=== PATIENT | female | born 1945 | race Asian ===

== ENCOUNTER 2019-10-03 00:02 | Inpatient (IN) | payer SELFPAY ==
[~2019-10-03] VITALS: Ht 160 cm; Wt 57.2 kg
[2019-10-03] VITALS (7 sets, daily range): BP systolic 104–158
--- NOTE | 2019-10-03 00:08 | NUR ---
Placed in room 8 . Placed on hide handler, blood pressure machine and pulse oximeter. To gown for exam. Side rails up. Report given to Shakira COFFEY.
--- NOTE | 2019-10-03 00:09 | NUR ---
pt BIB ALS from home c/o of shortness of breath that started today. pt O2 was 91% when FIRE arrived, was put on a nonrebreather on 15L. pt arrived and o2 saturation 100% on 15L o2. pt appears anxious, diaphoretic, cool to the touch, and is working to breathe. pt speaks egyptian.
--- NOTE | 2019-10-03 00:10 | NUR ---
# 20 gauge angiocath placed to Lt hand. Use of asceptic technique. Opsite placed over site. Blood return noted. Blood for lab drawn from site. Flushed with 10 cc of normal saline. No evidence of infiltration noted. Patient tolerated well.
--- NOTE | 2019-10-03 00:15 | NUR ---
ER at bedside examining patient.
[2019-10-03] MEDS ORDERED: NACL 0.9% 1,000 ML IV ONE ×2 (00:20→02:00)
--- NOTE | 2019-10-03 00:26 | NUR ---
Covid swab obtained and sent to lab
[2019-10-03] MEDS ORDERED: LevALBUTEROL HCL 1.25 MG/0.5 ML *CONC.* VIAL.NEB (XOPENEX CONC.) INH ONE (00:30)
--- NOTE | 2019-10-03 00:35 | NUR ---
respiratory therapy at bedside for ABG and breathing tx.
--- NOTE | 2019-10-03 00:36 | NUR ---
pt ripped out her IV on left hand. bleeding controlled.
--- NOTE | 2019-10-03 00:39 | NUR ---
pt desats to 80% when taken off supplemental oxygen. aware.
--- NOTE | 2019-10-03 00:40 | NUR ---
# 22 gauge angiocath placed to right hand. Use of asceptic technique. Opsite placed over site. Blood return noted. Flushed with 10 cc of normal saline. No evidence of infiltration noted. Patient tolerated well.
[2019-10-03 00:43] LABS: BASOPHILS % (AUTO) 0.3 % (0.0-2.0); EOSINOPHILS # (AUTO) 0.1 K/uL (0.0-0.4); EOSINOPHILS % (AUTO) 0.7 % (0.0-4.0); HEMATOCRIT 43.3 % (36-48); HEMOGLOBIN 14.5 g/dL (12.0-16.0); LYMPHOCYTES # (AUTO) 3.9 K/uL (1.0-5.5); LYMPHOCYTES % (AUTO) 37.3 % (20.5-51.5); MEAN CORPUSCULAR HEMOGLOBIN 31 pg (27-31); MEAN CORPUSCULAR HGB CONC 34 % (32-36); MEAN CORPUSCULAR VOLUME 92 fL (79.0-98.0); MONOCYTES # (AUTO) 0.6 K/uL (0.0-1.0); MONOCYTES % (AUTO) 5.5 % (1.7-9.3); NEUTROPHILS # (AUTO) 5.8 K/uL (1.8-7.7); NEUTROPHILS % (AUTO) 56.2 % (40.0-70.0); PLATELET COUNT (AUTO) 268 K/uL (130-430); RED BLOOD CELL COUNT(AUTO) 4.69 MIL/uL (4.2-6.2); RED CELL DISTRIBUTION WIDTH 12.9 % (9.0-15.0); WHITE BLOOD COUNT (AUTO) 10.4 K/uL (4.8-10.8)
[2019-10-03 00:55] LABS: ANION GAP 13 (5-15); CALCIUM 8.7 mg/dL (8.4-11.0); CHLORIDE 93 mmol/L (98-107); CREATININE 1.39 mg/dL (0.55-1.30); GLUCOSE 298 mg/dL (70-99); POTASSIUM 3.4 mmol/L (3.5-5.1); SODIUM SERUM 126 mmol/L (136-145); UREA NITROGEN, BLOOD 13 mg/dL (8-21)
[2019-10-03 01:01] LABS: ALANINE AMINOTRANSFERASE 44 U/L (12-78); ALBUMIN 3.5 g/dL (3.4-4.8); ASPARTATE AMINOTRANSFERASE 27 U/L (10-37); TOTAL BILIRUBIN 0.9 mg/dL (0.0-1.0)
[2019-10-03 01:02] LABS: PROTHROMBIN TIME 10.4 SECS (9.5-12.5)
--- NOTE | 2019-10-03 01:46 | NUR ---
Medication reconciliation completed with information provided by son. Any prior medication reconciliation on file was reviewed and corrected.
--- NOTE | 2019-10-03 01:49 | NUR ---
Patient's code status is full code paperwork completed and placed in chart.
--- NOTE | 2019-10-03 01:50 | NUR ---
SPOKE WITH SON ABOUT STATUS OF PT, WITH PT CONSENT.
[2019-10-03] MEDS ORDERED: NS 500 ML IV ONE (02:00)
--- NOTE | 2019-10-03 02:15 | NUR ---
respiratory at bedside to titrate pt oxygen to 12L. pt O2 sat at 96%.
--- NOTE | 2019-10-03 02:22 | NUR ---
1500mls of Normal Saline given as bolus per MD order. 1L infusing at 100mls/hr per md order. sepsis protocol initiated per MD order.
[2019-10-03 02:27] LABS: C-REACTIVE PROTEIN QUANT 0.3 mg/dL (0-0.5)
--- NOTE | 2019-10-03 02:28 | NUR ---
respiratory at bedside.
[2019-10-03] MEDS ORDERED: AZITHROMYCIN 500 MG in NS 250 ML IV ONE (02:30)
[2019-10-03] MEDS ORDERED: cefTRIAXone 1 GM IVPB PREMIX 50 ML IV ONE (02:30)
--- NOTE | 2019-10-03 02:33 | NUR ---
RECEIVED ADMIT ORDERS FROM DR. CANO.
[2019-10-03 02:35] LABS: FIBRINOGEN 333 mg/dL (200-400)
--- NOTE | 2019-10-03 02:35 | NUR ---
Blood cultures drawn, prior to administration of antibiotic.
--- NOTE | 2019-10-03 02:36 | NUR ---
spoke with Lou to request TELE bed.
[2019-10-03] MEDS ORDERED: AZITHROMYCIN 500 MG/VIAL (ZITHROMAX) IV ONE (02:58)
[2019-10-03] MEDS ORDERED: IPRATROPIUM/ALBUTEROL SULFATE 3 ML AMPUL.NEB (DUONEB) INH PRN ×2 (03:00→12:45)
--- NOTE | 2019-10-03 03:03 | NUR ---
PT ABLE TO AMBULATE TO BEDSIDE COMMODE WITH STEADY GAIT.
--- NOTE | 2019-10-03 03:17 | NUR ---
Patient will be admitted to care of DR. CANO. Admitted to TELE unit. Will go to room 120. Belongings list completed. Complete and up to date summary report printed. SBAR report to be given at bedside with opportunity for questions.
--- NOTE | 2019-10-03 03:31 | NUR ---
Transfer to TELE via ACLS protocol. Licensed nurse present. IV present no signs or symptoms of infiltration.
--- NOTE | 2019-10-03 04:04 | NUR ---
ADMISSION NOTE Received patient from ER via marta, received report from ALEXX zee. Patient admitted with diagnosis of PNA, PUI. Patient oriented to hospital routine, call light, toileting and safety-patient verbalized understanding.
[2019-10-03 04:22] LABS: BILIRUBIN,URINE NEGATIVE (NEGATIVE); BLOOD, URINE NEGATIVE (NEGATIVE); CLARITY/URINE CLEAR (CLEAR); COLOR,URINE YELLOW (YELLOW); GLUCOSE,URINE 2+ (NEGATIVE); KETONES,URINE NEGATIVE (NEGATIVE); LEUKOCYTE ESTERASE ,URINE NEGATIVE (NEGATIVE); NITRITE, URINE NEGATIVE (NEGATIVE); PROTEIN URINE 1+ (NEGATIVE); UROBILINOGEN,URINE 0.2 (0.2-1.0)
[2019-10-03 04:38] LABS: BACTERIA,URINE FEW /HPF (None Seen); RBC,URINE 0-3 /HPF (0-3); WBC,URINE 0-3 /HPF (0-3)
--- NOTE | 2019-10-03 06:30 | NUR ---
CLOSING NOTE PATIENT AWAKE IN BED, ASKING TO GO HOME. EDUCATED PATIENT ON REASON SHES IN THE HOSPITAL. RESPIRATIONS EVEN AND UNLABORED ON OXYGEN 10LPM VIA VENTURI MASK. TOLERATING IVF ORDERED, IV INTACT AND PATENT WITH NO SIGNS OF INFILTRATION NOTED. ISOLATION PRECAUTIONS REMAIN IN PLACE PER COVID PUI. BED LOCKED IN LOWEST POSITION, WITH CALL LIGHT IN REACH. WILL CONTINUE TO MONITOR UNTIL ENDORSED TO AM NURSE. PATIENT STABLE. ALL PATIENT CARE NEEDS MET THROUGHOUT SHIFT.
--- NOTE | 2019-10-03 08:00 | NUR ---
initial notes rec patient awake alert and speaks swazi only. with lydia mask at 9 liters . no sob noted and sat is 100%. denies pain.call light withn reached. seen by dr camilo. awaiting for dr decker to call for diet order.
--- NOTE | 2019-10-03 08:12 | NUR ---
CONSULT PULMONOLOGY PNEUMONIA/PUI DR VERITO PATTON IS STAFF DEVELOPMENT EDUCATOR AND WAS INFORMED OF CONSULT
[2019-10-03] MEDS: IPRATROPIUM/ALBUTEROL SULFATE 3 ML AMPUL.NEB (DUONEB) INH SCH ×5 (08:15→23:15)
[2019-10-03] MEDS: FUROSEMIDE 20 MG/2 ML VIAL IVP SCH ×2 (08:15→12:00)
[2019-10-03] MEDS ORDERED: FUROSEMIDE 20 MG/2 ML VIAL IVP ONE (08:30)
--- NOTE | 2019-10-03 10:00 | NUR ---
rounds son came and brought cell phone for patient. son constantly calls and wants an update for the patient. resting comfortably.
--- NOTE | 2019-10-03 11:45 | NUR ---
CONSULT CARDIOLOGY CHF DR BOLANOS [phone] S/W [facility] OFFICE
[2019-10-03] MEDS ORDERED: FUROSEMIDE 40 MG/4 ML VIAL IVP ONE (12:45)
[2019-10-03] MEDS ORDERED: CARVEDILOL 6.25 MG TABLET (COREG) PO ONE (12:45)
[2019-10-03] MEDS: ENOXAPARIN SODIUM 30 MG/0.3 ML SYRINGE SUBCUT SCH (13:00)
--- NOTE | 2019-10-03 14:00 | NUR ---
rounds seen by dr parish and with order.
--- NOTE | 2019-10-03 18:30 | NUR ---
closing notes denies pain, resting comfortably needs met. no sob noted. call light within reached. bed in low positon and side rails up and locked.
--- NOTE | 2019-10-03 19:15 | NUR ---
Pt was received lying in bed fully awake, alert and oriented x4. Pt is on oxygen at 2L/min via NC and oxygen saturation is 98%. Pt is Macanese speaking, but able to understand and speak little Maori. Pt is able to make her needs known in Maori. Saline lock in right hand is without any signs of infiltration. Fall, Droplet Isolation and Safety precautions are in place. Call light is with pt and bed alarm is on.
[2019-10-03] MEDS: CARVEDILOL 6.25 MG TABLET (COREG) PO SCH (20:15)
--- NOTE | 2019-10-03 20:15 | NUR ---
RN returned telephone call to pt's son Deepak. Updates were given to him per his request and all his questions were answered. Addendum: 10/03/19 at 2129 by Kirsten Cordero RN Please disregard for wrong entry time.
--- NOTE | 2019-10-03 20:15 | NUR ---
Scheduled HS medication given and no difficulty swallowing noted. Pt remains on oxygen at 2L/min per NC. Call light is with pt and bed alarm is on.
--- NOTE | 2019-10-03 21:15 | NUR ---
RN returned telephone call to pt's son Deepak. Updates were given to him per his request and all his questions were answered.
--- NOTE | 2019-10-03 23:00 | NUR ---
Pt is resting quietly in bed. No c/o pain or discomfort. Fall, Droplet Isolation and Safety precautions are in place.
[2019-10-04] VITALS: BP_SYST 112
--- NOTE | 2019-10-04 01:00 | NUR ---
Pt is sleeping without any respiratory distress noted. Fall, Droplet Isolation and safety precautions are in place.
--- NOTE | 2019-10-04 02:55 | NUR ---
Pt c/o not receiving any air via NC. Pt requested oxygen via mask. O2 sat checked on oxygen at 2L/min via NC and it was 100%. Pt still not convinced that she is getting oxygen. Pt insisted on putting her back on oxygen via face mask. Pt appears anxious and hyperventilating. RT was notified.
[2019-10-04] MEDS: IPRATROPIUM/ALBUTEROL SULFATE 3 ML AMPUL.NEB (DUONEB) INH SCH ×6 (03:00→23:28)
--- NOTE | 2019-10-04 03:00 | NUR ---
RT at pt's bedside and pt's oxygen saturation 99% on oxygen at 2L/min per NC. Breathing treatment given to pt by RT. Pt still asking for oxygen via mask. Pt was informed she does not need oxygen via mask.
--- NOTE | 2019-10-04 05:00 | NUR ---
Pt is sleeping in bed and no respiratory distress noted.
--- NOTE | 2019-10-04 06:20 | NUR ---
Pt is very anxious and keeps requesting oxygen via mask. Pt is currently on oxygen via NC at 2L/min and oxygen saturation is 99%. Pt was informed her oxygen saturation is normal, but pt keeps on insisting on putting her back on mask. RN left a message for pt's son to call her back.
--- NOTE | 2019-10-04 06:39 | NUR ---
Pt remains very anxious and continues to scream for oxygen via face mask. New orders received from Dr. Hester for Stat ABG and IV Ativan. RT was notified for Stat ABG.
[2019-10-04 06:40] LABS: BASOPHILS % (AUTO) 0.2 % (0.0-2.0); HEMATOCRIT 39.6 % (36-48); HEMOGLOBIN 13.4 g/dL (12.0-16.0); LYMPHOCYTES # (AUTO) 1.6 K/uL (1.0-5.5); LYMPHOCYTES % (AUTO) 17.9 % (20.5-51.5); MEAN CORPUSCULAR HEMOGLOBIN 31 pg (27-31); MEAN CORPUSCULAR HGB CONC 34 % (32-36); MEAN CORPUSCULAR VOLUME 92 fL (79.0-98.0); MONOCYTES # (AUTO) 0.5 K/uL (0.0-1.0); NEUTROPHILS % (AUTO) 76.9 % (40.0-70.0); PLATELET COUNT (AUTO) 248 K/uL (130-430); RED BLOOD CELL COUNT(AUTO) 4.31 MIL/uL (4.2-6.2); WHITE BLOOD COUNT (AUTO) 9.1 K/uL (4.8-10.8)
[2019-10-04] MEDS ORDERED: LORazepam 2 MG/ML VIAL IVP ONE (06:45)
--- NOTE | 2019-10-04 06:45 | NUR ---
HIGH ALERT NOTE: RN called Dr. Hester back at [phone], identified within the medical roster to verify physician authenticity for Ativan order.
--- NOTE | 2019-10-04 06:53 | NUR ---
RT NOTES Placed pt on 28% 6L venturi mask for comfort, due to despite good saturation on 2L NC pt complains of "not enough" flow. ALEXX Curtis made aware.
--- NOTE | 2019-10-04 07:10 | NUR ---
Results of ABGs called to Dr. Guerrero and no new orders given.
[2019-10-04 07:12] LABS: ALANINE AMINOTRANSFERASE 49 U/L (12-78); ALBUMIN 3.4 g/dL (3.4-4.8); ANION GAP 12 (5-15); ASPARTATE AMINOTRANSFERASE 37 U/L (10-37); CALCIUM 8.2 mg/dL (8.4-11.0); CHLORIDE 91 mmol/L (98-107); CREATININE 1.16 mg/dL (0.55-1.30); GLUCOSE 139 mg/dL (70-99); POTASSIUM 3.5 mmol/L (3.5-5.1); SODIUM SERUM 125 mmol/L (136-145); TOTAL BILIRUBIN 0.9 mg/dL (0.0-1.0); UREA NITROGEN, BLOOD 14 mg/dL (8-21)
--- NOTE | 2019-10-04 07:15 | NUR ---
Pt was seen by Dr. Gore.
--- NOTE | 2019-10-04 07:20 | NUR ---
Report given to day shift nurse.
--- NOTE | 2019-10-04 07:36 | NUR ---
Ativan 0.5mg given IV as ordered by .
[2019-10-04 07:49] LABS: CHOLESTEROL 223 mg/dL (<200); HDL CHOLESTEROL 65 mg/dL (>55); LDL CHOLESTEROL 138 mg/dL (<100); TRIGLYCERIDES 107 mg/dL (30-150)
--- NOTE | 2019-10-04 08:00 | NUR ---
ASSUMPTION OF CARE: RECEIVED PT A/ANXIOUS/CONFUSED, DX:INADEQUATE VENTILATION, R/T PNU, PUI, AFEBRILE, VSS, PT HAS AUDIBLE WHEEZING IN BILATERALLY LUNGS, CURRENTLY ON 6L VIA NASAL CANNULA WITH BREATHING TX Q4 AND Q6 PRN, PT REORIENTED TO UNIT, CALL PLACED WITHIN REACH, WILL CONT' TO MONITOR AND ASSESS.
[2019-10-04] MEDS ORDERED: METOLAZONE 2.5 MG TABLET PO ONE (08:15)
[2019-10-04] MEDS ORDERED: POTASSIUM CHLORIDE 20 MEQ TAB.PRT.SR PO ONE (08:15)
[2019-10-04 08:58] VITALS: BP_SYST 143
--- NOTE | 2019-10-04 09:00 | NUR ---
SPICE MIXER: MORNING MEDS GIVEN, PER ORDERED BY Saurabh TOLERATED WELL, WILL CONT' WITH PLAN OF CARE.
[2019-10-04] MEDS ORDERED: MORPHINE 2 MG/ML INJ. SYRINGE ONE (09:27)
[2019-10-04] MEDS: cefTRIAXone 1 GM IVPB PREMIX 50 ML IV SCH (09:33)
[2019-10-04] MEDS: SPIRONOLACTONE 25 MG TABLET (ALDACTONE) PO SCH (09:33)
[2019-10-04] MEDS: AZITHROMYCIN 500 MG in NS 250 ML IV SCH (09:33)
[2019-10-04] MEDS: CARVEDILOL 6.25 MG TABLET (COREG) PO SCH ×2 (09:34→21:00)
[2019-10-04] MEDS: FUROSEMIDE 40 MG/4 ML VIAL IVP SCH ×3 (09:35→17:00)
[2019-10-04] MEDS: ENOXAPARIN SODIUM 30 MG/0.3 ML SYRINGE SUBCUT SCH (09:36)
[2019-10-04] MEDS ORDERED: MORPHINE 2 MG/ML INJ. SYRINGE IVP ONE (09:45)
[2019-10-04] MEDS ORDERED: NALOXONE HCL 0.4 MG/ML AMP (NARCAN) IVP PRN (09:45)
--- NOTE | 2019-10-04 12:00 | NUR ---
NURSES NOTES: PT REMAINS STABLE WITH 6L O2 VIA VENT MASK, IS RESTING WHILE IN AND OUT OF SLEEP, CALL LIGHT PLACED WITHIN REACH, WILL CONT' TO MONITOR AND ASSESS.
[2019-10-04 12:19] VITALS: BP_SYST 130
--- NOTE | 2019-10-04 14:00 | NUR ---
NURSES NOTES: PT A/A/OX3, CONDITION IS STABLE, NO DISTRESS NOTED AT THIS TIME, NO C/O PAIN OR DISCOMFORT, WILL CONT' TO MONITOR AND ASSESS.
[2019-10-04 16:39] VITALS: BP_SYST 122
--- NOTE | 2019-10-04 18:30 | NUR ---
TRANSFER: PT TRANSFERRED TO [facility] ROOM 113-B, DUE TO COVID (-) X2, ISOLATION DISCONTINUED, WILL RESUME SAME ORDERS, WILL CONT' POC.
--- NOTE | 2019-10-04 19:30 | NUR ---
Initial notes: Received report from valery RN. Patient is in bed, resting. No acute distress. Even, nonlabored breathing on Venturi mask 6L. IV site is patent and intact, saline locked. Bed is locked at lowest position. Side rails up x2. Call light is with patient. Safety and fall precautions in place. Will continue plan of care.
[2019-10-04 20:00] VITALS: BP_SYST 138
--- NOTE | 2019-10-04 21:13 | NUR ---
Spoke to family: Spoke to sonDeepak over facetime with patient at bedside. Updated him on patient status and patient plan of care.
[2019-10-05] VITALS: BP_SYST 108
--- NOTE | 2019-10-05 00:05 | NUR ---
Rounds: Patient is in bed, sleeping. No acute distress. Breathing is even, nonlabored on Venturi mask 6L. Call light is with patient. Safety and fall precautions in place. Will continue to monitor.
--- NOTE | 2019-10-05 02:30 | NUR ---
Rounds: Patient is in bed, sleeping. No acute distress. Respirations are even, nonlabored on Venturi mask 6L. Call light is with patient. Safety and fall precautions in place. Will continue monitoring.
[2019-10-05] MEDS: IPRATROPIUM/ALBUTEROL SULFATE 3 ML AMPUL.NEB (DUONEB) INH SCH ×6 (03:38→22:50)
--- NOTE | 2019-10-05 05:15 | NUR ---
Rounds: Patient is in bed, eating. No s/s acute distress. Even, nonlabored respirations on Venturi mask 6L. Call light is with patient. Safety and fall precautions in place. Will continue to monitor.
[2019-10-05] MEDS: FUROSEMIDE 40 MG/4 ML VIAL IVP SCH (06:12)
[2019-10-05 06:52] LABS: BASOPHILS % (AUTO) 0.2 % (0.0-2.0); EOSINOPHILS # (AUTO) 0.1 K/uL (0.0-0.4); EOSINOPHILS % (AUTO) 0.6 % (0.0-4.0); HEMATOCRIT 36.3 % (36-48); HEMOGLOBIN 12.6 g/dL (12.0-16.0); LYMPHOCYTES # (AUTO) 1.3 K/uL (1.0-5.5); LYMPHOCYTES % (AUTO) 14.6 % (20.5-51.5); MEAN CORPUSCULAR HEMOGLOBIN 31 pg (27-31); MEAN CORPUSCULAR HGB CONC 35 % (32-36); MEAN CORPUSCULAR VOLUME 90 fL (79.0-98.0); MONOCYTES # (AUTO) 0.9 K/uL (0.0-1.0); MONOCYTES % (AUTO) 9.7 % (1.7-9.3); NEUTROPHILS # (AUTO) 6.8 K/uL (1.8-7.7); NEUTROPHILS % (AUTO) 74.9 % (40.0-70.0); PLATELET COUNT (AUTO) 243 K/uL (130-430); RED BLOOD CELL COUNT(AUTO) 4.04 MIL/uL (4.2-6.2); RED CELL DISTRIBUTION WIDTH 13.1 % (9.0-15.0); WHITE BLOOD COUNT (AUTO) 9.1 K/uL (4.8-10.8)
--- NOTE | 2019-10-05 06:58 | NUR ---
Closing note: Patient is in bed, resting. No acute distress. Even, nonlabored breathing on 6L Venturi Mask. IV site is saline locked, patent and intact. All needs met. Bed is locked at lowest position. Side rails up x2. Call light is with patient. Safety and fall precautions in place. Will endorse care to dayshift RN.
[2019-10-05 07:12] LABS: ALANINE AMINOTRANSFERASE 54 U/L (12-78); ANION GAP 10 (5-15); ASPARTATE AMINOTRANSFERASE 45 U/L (10-37); CALCIUM 8.2 mg/dL (8.4-11.0); CHLORIDE 94 mmol/L (98-107); GLUCOSE 118 mg/dL (70-99); POTASSIUM 3.6 mmol/L (3.5-5.1); SODIUM SERUM 126 mmol/L (136-145); TOTAL BILIRUBIN 0.7 mg/dL (0.0-1.0); UREA NITROGEN, BLOOD 21 mg/dL (8-21)
[2019-10-05 08:00] VITALS: BP_SYST 106
--- NOTE | 2019-10-05 08:00 | NUR ---
Opening Notes Patient received in bed able to answer questions and follow commands. Patient in no signs of distress at this time. Patient on a venturi mask at 6L, with saturation at 97%. Patient has a peripheral IV. Patient does not complain of pain. Safety precautions enforced.
[2019-10-05] MEDS: CARVEDILOL 6.25 MG TABLET (COREG) PO SCH ×2 (08:57→21:25)
[2019-10-05] MEDS: SPIRONOLACTONE 25 MG TABLET (ALDACTONE) PO SCH (08:57)
[2019-10-05] MEDS: ENOXAPARIN SODIUM 30 MG/0.3 ML SYRINGE SUBCUT SCH (08:59)
[2019-10-05] MEDS: AZITHROMYCIN 500 MG in NS 250 ML IV SCH (09:04)
[2019-10-05] MEDS: cefTRIAXone 1 GM IVPB PREMIX 50 ML IV SCH (09:04)
[2019-10-05] MEDS ORDERED: LOSARTAN POTASSIUM 50 MG TABLET (COZAAR) PO ONE (09:15)
--- NOTE | 2019-10-05 09:17 | NUR ---
Nutrition Update Chrsi Scale 18 noted. Pt admitted for PNA, PUI Diet: cardiac BMI: 22.1 kg/m2 RD to follow per nutrition care standards.
--- NOTE | 2019-10-05 10:00 | NUR ---
Oxygen Patient placed on 4L oxygen via nasal cannula per Dr. Gore. Patient tolerating well.
[2019-10-05] MEDS ORDERED: NS 250 ML IV ONE (11:15)
--- NOTE | 2019-10-05 12:00 | NUR ---
RN Rounds Patient resting in bed with no signs of distress at this time.
[2019-10-05 12:54] VITALS: BP_SYST 107
--- NOTE | 2019-10-05 16:00 | NUR ---
RN Rounds Patient resting at this time, no signs of distress noted. Patient has no complaints of pain.
[2019-10-05 17:00] VITALS: BP_SYST 110
--- NOTE | 2019-10-05 19:30 | NUR ---
Initial notes: Received report from dayshift RN. Patient is in bed, resting. No acute distress. Even, nonlabored breathing on 2L nasal cannula. IV site is patent and intact, saline locked. Bed is locked at lowest position. Side rails up x2. Call light is with patient. Safety and fall precautions in place. Will continue plan of care.
--- NOTE | 2019-10-05 19:41 | NUR ---
Closing Notes Patient endorsed to manager night RN using SBAR. Patient in no signs of distress.
[2019-10-05 20:00] VITALS: BP_SYST 112
--- NOTE | 2019-10-05 21:20 | NUR ---
Spoke to Dr. Gore: Spoke to Dr. Gore over the phone regarding patients BP 112/71 and HR 91. MD stated to continue scheduled medications Coreg 12.5mg PO and Lasix 40mg PO. Will continue to monitor and reassess patient.
[2019-10-05] MEDS: FUROSEMIDE 40 MG TABLET PO SCH (21:25)
--- NOTE | 2019-10-05 21:55 | NUR ---
Spoke to family member: Spoke to son, Deepak, twice. Son notified me of patient's concern of a cough. Educated son about medications given. Son translated information to patient. Patient verbalized understanding.
--- NOTE | 2019-10-06 00:15 | NUR ---
Rounds: Patient is in bed, sleeping. No acute distress. Breathing is even, nonlabored on 2L nasal cannula. Call light is with patient. Safety and fall precautions in place. Will continue to monitor.
[2019-10-06 01:37] VITALS: BP_SYST 105
--- NOTE | 2019-10-06 02:30 | NUR ---
Rounds: Patient is in bed, sleeping. No signs of acute distress. Respirations are even, nonlabored on 2L nasal cannula. Call light is with patient. Safety and fall precautions in place. Will continue to monitor.
[2019-10-06] MEDS: IPRATROPIUM/ALBUTEROL SULFATE 3 ML AMPUL.NEB (DUONEB) INH SCH ×6 (03:22→23:40)
--- NOTE | 2019-10-06 05:00 | NUR ---
Rounds: Patient is sleeping in bed. No s/s of acute distress. Breathing is even, nonlabored on 2L nasal cannula. Call light is with patient. Safety and fall precautions in place. Will continue to monitor.
--- NOTE | 2019-10-06 05:50 | NUR ---
NOTE PATIENT IS RESTING IN BED, STABLE, NO SIGNS OF RESPIRATORY DISTRESS. CALL LIGHT PLACED WITHIN REACH. BED IS LOCKED, ALARMED, AND AT THE LOWEST LEVEL. Addendum: 10/07/19 at 0719 by Diane Bingham RN NOTE INTENDED FOR DIFFERENT TIME
--- NOTE | 2019-10-06 06:21 | NUR ---
Closing note: Patient is in bed, sleeping. No acute distress. Even, nonlabored breathing on 2L nasal cannula. V site is saline locked, patent and intact. All needs met. Bed is locked at lowest position. Side rails up x2. Call light is with patient. Safety and fall precautions in place. Will endorse care to dayshift RN.
[2019-10-06 07:37] LABS: ANION GAP 8 (5-15); CALCIUM 8.3 mg/dL (8.4-11.0); CHLORIDE 100 mmol/L (98-107); CREATININE 1.25 mg/dL (0.55-1.30); GLUCOSE 97 mg/dL (70-99); POTASSIUM 3.1 mmol/L (3.5-5.1); SODIUM SERUM 137 mmol/L (136-145); UREA NITROGEN, BLOOD 20 mg/dL (8-21)
--- NOTE | 2019-10-06 08:05 | NUR ---
Opening note Patient is laying down resting, a/o x4, IV saline lock in place patent and infusing well, assessment complete, Safety measures in place, fall risk and aspiration precautions in place, call light within patient reach, bed in lowest position.
[2019-10-06] MEDS: cefTRIAXone 1 GM IVPB PREMIX 50 ML IV SCH (08:14)
[2019-10-06] MEDS: FUROSEMIDE 40 MG TABLET PO SCH ×2 (08:15→20:26)
[2019-10-06] MEDS: ENOXAPARIN SODIUM 30 MG/0.3 ML SYRINGE SUBCUT SCH (08:15)
[2019-10-06] MEDS: SPIRONOLACTONE 25 MG TABLET (ALDACTONE) PO SCH (08:16)
[2019-10-06] MEDS: LOSARTAN POTASSIUM 50 MG TABLET (COZAAR) PO SCH (09:00)
[2019-10-06] MEDS: CARVEDILOL 6.25 MG TABLET (COREG) PO SCH ×2 (09:00→20:27)
[2019-10-06 09:08] VITALS: BP_SYST 97
--- NOTE | 2019-10-06 09:45 | NUR ---
Dr. Hester rounds informed of low BP, assessed patient at bedside, spoke with patient's son over the phone to updated on plan of care. Will follow up with any new orders.
[2019-10-06] MEDS: AZITHROMYCIN 500 MG in NS 250 ML IV SCH (09:47)
--- NOTE | 2019-10-06 09:50 | NUR ---
Dr. Gore rounds informed of low BP, MD assessed patient at bedside, Dr. Gore asked to check patient's O2 saturation on room air, saturation was 99-100% on room, discontinued nasal cannula at this time, continuing to monitor patient. Will follow up with any new orders.
[2019-10-06] MEDS ORDERED: POTASSIUM CHLORIDE 20 MEQ/PKT PACKET PO ONE (10:30)
--- NOTE | 2019-10-06 11:40 | NUR ---
RN Rounds patient resting in bed, a/o x 4, no signs of distress, IV line flushed and patent, vital signs stable with exception of BP, will continue to monitor BP, All needs attended to, safety measures maintained, call light within reach, bed at lowest position, fall and aspiration precautions put in place.
[2019-10-06 12:00] VITALS: BP_SYST 99
[2019-10-06 12:20] VITALS: BP_SYST 99
--- NOTE | 2019-10-06 13:40 | NUR ---
RN Rounds patient is awake and sitting up talking on the phone, patient is tolerating oxygen on room air with no signs of distress or shortness of breath, patient in stable condition, safety precautions in place, will continue to monitor patient for any changes.
--- NOTE | 2019-10-06 14:36 | NUR ---
Dr. Damon rounds assessed patient, will follow up with any new orders.
--- NOTE | 2019-10-06 15:45 | NUR ---
RN rounds patient resting in bed, wanting to ambulate in the hallway, assisted patient to ambulate, she tolerated well, denies shortness of breath, returned patient to her bed again, continuing to monitor, bed in lowest position, two side rails up, call light within reach, fall and aspiration precautions in place.
[2019-10-06 16:09] VITALS: BP_SYST 100
--- NOTE | 2019-10-06 18:20 | NUR ---
Closing note patient resting in bed no signs of distress, all needs met, will endorse report to incoming overnight stocker nurse, bed in lowest position, two side rails up, fall/aspiration precautions in place.
--- NOTE | 2019-10-06 19:50 | NUR ---
INITIAL NOTE AT INITIAL ASSESSMENT, PATIENT IS RESTING IN BED, STABLE, NO SIGNS OF RESPIRATORY DISTRESS. PLAN OF CARE FOR THE EVENING IS COMMUNICATED WITH THE PATIENT. PATIENT VERBALIZES NO PAIN. PATIENT IS SUCCESSFUL IN TEACH-BACK OF CALL LIGHT USAGE AT THIS TIME. BED IS LOCKED, ALARMED, AND AT THE LOWEST LEVEL. FALL, SAFETY, AND RESPIRATORY PRECAUTIONS WILL BE TAKEN THROUGHOUT THE SHIFT.
[2019-10-06 20:00] VITALS: BP_SYST 122
--- NOTE | 2019-10-06 21:50 | NUR ---
NOTE SCHEDULED MEDICATIONS GIVEN AT THIS TIME. PATIENT TOLERATED WELL. CALL LIGHT PLACED WITHIN REACH. BED IS LOCKED, ALARMED, AND AT THE LOWEST LEVEL.
--- NOTE | 2019-10-06 23:50 | NUR ---
NOTE PATIENT IS RESTING IN A CHAIR AT BEDSIDE, STABLE, NO SIGNS OF RESPIRATORY DISTRESS. CALL LIGHT PLACED WITHIN REACH. BED IS LOCKED, ALARMED, AND AT THE LOWEST LEVEL.
[2019-10-07] VITALS: BP_SYST 110
--- NOTE | 2019-10-07 01:50 | NUR ---
NOTE PATIENT IS SLEEPING, STABLE, NO SIGNS OF RESPIRATORY DISTRESS. CALL LIGHT PLACED WITHIN REACH. BED IS LOCKED, ALARMED, AND AT THE LOWEST LEVEL.
--- NOTE | 2019-10-07 03:50 | NUR ---
NOTE PATIENT IS SLEEPING, STABLE, NO SIGNS OF RESPIRATORY DISTRESS. CALL LIGHT PLACED WITHIN REACH. BED IS LOCKED, ALARMED, AND AT THE LOWEST LEVEL.
[2019-10-07] MEDS: IPRATROPIUM/ALBUTEROL SULFATE 3 ML AMPUL.NEB (DUONEB) INH SCH ×6 (03:55→23:57)
--- NOTE | 2019-10-07 05:50 | NUR ---
NOTE PATIENT IS RESTING IN BED, STABLE, NO SIGNS OF RESPIRATORY DISTRESS. CALL LIGHT PLACED WITHIN REACH. BED IS LOCKED, ALARMED, AND AT THE LOWEST LEVEL.
--- NOTE | 2019-10-07 06:40 | NUR ---
CLOSING NOTE PATIENT SLEPT WELL THROUGHOUT THE SHIFT. AT THIS TIME, PATIENT IS RESTING IN BED, STABLE, NO SIGNS OF RESPIRATORY DISTRESS. CALL LIGHT IS WITHIN REACH. BED IS LOCKED, ALARMED, AND AT THE LOWEST LEVEL. FALL, SAFETY, AND RESPIRATORY PRECAUTIONS HAVE BEEN IN PLACE THROUGHOUT THE SHIFT. WILL CONTINUE TO MONITOR UNTIL REPORT IS GIVEN AT BEDSIDE TO AM NURSE.
--- NOTE | 2019-10-07 07:30 | NUR ---
Opening Note Received bedside report from endorsing RN for continuation of care. Received patient awake and brushing her teeth at the sink, patient denies any SOB or pain at this time. No signs or symptoms of acute distress noted. Call light within reach. Safety precautions in place. All needs met.
[2019-10-07 08:00] VITALS: BP_SYST 123
[2019-10-07] MEDS: CARVEDILOL 6.25 MG TABLET (COREG) PO SCH ×2 (08:24→20:46)
[2019-10-07] MEDS: SPIRONOLACTONE 25 MG TABLET (ALDACTONE) PO SCH (08:24)
[2019-10-07] MEDS: FUROSEMIDE 40 MG TABLET PO SCH ×2 (08:24→20:46)
[2019-10-07] MEDS: POTASSIUM CHLORIDE 20 MEQ/PKT PACKET PO SCH (08:24)
[2019-10-07] MEDS: ENOXAPARIN SODIUM 30 MG/0.3 ML SYRINGE SUBCUT SCH (08:25)
[2019-10-07] MEDS: LOSARTAN POTASSIUM 50 MG TABLET (COZAAR) PO SCH (10:18)
--- NOTE | 2019-10-07 11:30 | NUR ---
Dr. Gore in to see patient. No new orders.
--- NOTE | 2019-10-07 12:12 | NUR ---
Dr. Lan Stallworth in to see patient. New orders received.
[2019-10-07 12:20] VITALS: BP_SYST 99
--- NOTE | 2019-10-07 13:00 | NUR ---
Patient ambulating throughout unit, steady gait, connected to continuous office admin. Patient denies any pain or SOB at this time.
--- NOTE | 2019-10-07 13:30 | NUR ---
Dr. Damon in to see patient. No new orders.
--- NOTE | 2019-10-07 14:30 | NUR ---
Dietitian Recommendations * Continue current diet order * Encourage PO intake Please see nutrition assessment for details. SS,VIKI
[2019-10-07 16:19] VITALS: BP_SYST 118
--- NOTE | 2019-10-07 16:45 | NUR ---
Assisted patient back to bed from using bathroom. Connected to continuous quality assurance monitor body. Patient denies any pain or SOB at this time. No signs or symptoms of acute distress noted.
--- NOTE | 2019-10-07 19:03 | NUR ---
Closing Note Endorsed bedside report to oncoming RN using SBAR approach for continuation of care.
--- NOTE | 2019-10-07 19:30 | NUR ---
OPENING NOTES RECEIVED SBAR REPORT FROM DAY SHIFT RN. PT RESTING IN BED, ALERT & ORIENTED X4. BREATHING EVEN AND UNLABORED TO ROOM AIR. NO S/S OF DISTRESS NOTED. PT DENIES ANY PAIN AT THIS TIME. RIGHT HAND 22G INTACT, NO SIGNS OF INFILTRATION NOTED. BED LOCKED IN LOWEST POSITION. SIDE RAILS UP. CLOSE TO NURSING STATION. SAFETY AND FALL PRECAUTIONS ARE IN PLACE. WILL CONTINUE TO MONITOR.
[2019-10-07 20:00] VITALS: BP_SYST 94
--- NOTE | 2019-10-07 20:46 | NUR ---
SCHEDULED MEDICATION HOLD SCHEDULED MEDICATIONS HOLD DUE TO LOW BLOOD PRESSURE. BREATHING EVEN AND UNLABORED TO ROOM AIR. NO S/S OF DISTRESS NOTED. BED LOCKED IN LOWEST POSITION. SIDE RAILS UP X3. CALL LIGHT WITHIN REACH. SAFETY AND FALL PRECAUTIONS MAINTAINED. WILL CONTINUE TO MONITOR.
--- NOTE | 2019-10-07 23:05 | NUR ---
RN ROUNDS PT SLEEPING, CHEST RISE AND FALL SYMMETRICAL. NO SIGNS AND SYMPTOMS OF SHORTNESS OF BREATH OR PAIN NOTED. BED LOCKED IN LOWEST POSITION. CALL LIGHT WITHIN REACH. CLOSE TO NURSING STATION. SAFETY AND FALL PRECAUTIONS ARE IN PLACE. WILL MONITOR.
[2019-10-08] VITALS: BP_SYST 111
--- NOTE | 2019-10-08 01:35 | NUR ---
RN ROUNDS PT SLEEPING. BREATHING EVEN AND UNLABORED TO ROOM AIR. NO S/S OF ACUTE DISTRESS NOTED. BED LOCKED IN LOWEST POSITION. CALL LIGHT WITHIN REACH. SIDE RAILS UP. SAFETY AND FALL PRECAUTIONS ARE IN PLACE. WILL CONTINUE TO MONITOR.
[2019-10-08] MEDS: IPRATROPIUM/ALBUTEROL SULFATE 3 ML AMPUL.NEB (DUONEB) INH SCH ×4 (03:27→16:23)
--- NOTE | 2019-10-08 03:49 | NUR ---
RN ROUNDS PT RESTING IN BED. CHEST RISE AND FALL SYMMETRICAL. BREATHING EVEN AND UNLABORED. NO S/S OF DISTRESS NOTED. PT DENIES ANY PAIN AT THIS TIME. CALL LIGHT WITHIN REACH. SIDE RAILS UP. BED LOCKED IN LOWEST POSITION. SAFETY AND FALL PRECAUTIONS ARE IN PLACE. WILL MONITOR.
--- NOTE | 2019-10-08 06:30 | NUR ---
CLOSING NOTES PT RESTING IN BED. BREATHING EVEN AND UNLABORED TO ROOM AIR. NO S/S OF ACUTE DISTRESS NOTED. PT DENIES ANY PAIN AT THIS TIME. RIGHT HAND 22G INTACT, NO SIGNS OF INFILTRATION NOTED. BED LOCKED IN LOWEST POSITION. SIDE RAILS UP. CLOSE TO NURSING STATION. SAFETY AND FALL PRECAUTIONS ARE IN PLACE. ALL NEEDS ARE MET THROUGHOUT SHIFT. WILL CONTINUE TO MONITOR UNTIL ENDORSE TO DAY SHIFT RN. .
[2019-10-08 07:03] LABS: ANION GAP 10 (5-15); CALCIUM 8.7 mg/dL (8.4-11.0); CHLORIDE 99 mmol/L (98-107); CREATININE 1.11 mg/dL (0.55-1.30); GLUCOSE 96 mg/dL (70-99); POTASSIUM 3.2 mmol/L (3.5-5.1); SODIUM SERUM 137 mmol/L (136-145); UREA NITROGEN, BLOOD 16 mg/dL (8-21)
[2019-10-08 07:04] LABS: BASOPHILS % (AUTO) 0.4 % (0.0-2.0); EOSINOPHILS # (AUTO) 0.2 K/uL (0.0-0.4); EOSINOPHILS % (AUTO) 2.7 % (0.0-4.0); HEMOGLOBIN 13.7 g/dL (12.0-16.0); LYMPHOCYTES # (AUTO) 1.2 K/uL (1.0-5.5); LYMPHOCYTES % (AUTO) 20.4 % (20.5-51.5); MEAN CORPUSCULAR HEMOGLOBIN 31 pg (27-31); MEAN CORPUSCULAR HGB CONC 33 % (32-36); MEAN CORPUSCULAR VOLUME 92 fL (79.0-98.0); MONOCYTES # (AUTO) 0.6 K/uL (0.0-1.0); MONOCYTES % (AUTO) 10.4 % (1.7-9.3); NEUTROPHILS # (AUTO) 3.8 K/uL (1.8-7.7); NEUTROPHILS % (AUTO) 66.1 % (40.0-70.0); PLATELET COUNT (AUTO) 231 K/uL (130-430); RED BLOOD CELL COUNT(AUTO) 4.47 MIL/uL (4.2-6.2); RED CELL DISTRIBUTION WIDTH 13.6 % (9.0-15.0); WHITE BLOOD COUNT (AUTO) 5.8 K/uL (4.8-10.8)
[2019-10-08 08:00] VITALS: BP_SYST 112
[2019-10-08] MEDS: ENOXAPARIN SODIUM 30 MG/0.3 ML SYRINGE SUBCUT SCH (08:52)
[2019-10-08] MEDS: POTASSIUM CHLORIDE 20 MEQ/PKT PACKET PO SCH (08:52)
[2019-10-08] MEDS: LOSARTAN POTASSIUM 50 MG TABLET (COZAAR) PO SCH (08:53)
[2019-10-08] MEDS: CARVEDILOL 6.25 MG TABLET (COREG) PO SCH (08:53)
[2019-10-08] MEDS: SPIRONOLACTONE 25 MG TABLET (ALDACTONE) PO SCH (08:54)
[2019-10-08] MEDS: FUROSEMIDE 40 MG TABLET PO SCH (08:54)
[2019-10-08] MEDS ORDERED: SPIR25TA PO (11:45)
[2019-10-08] MEDS ORDERED: FURO-149 PO (11:45)
[2019-10-08] MEDS ORDERED: POTASSIUM CHLOR 20 mEq/Packet PO (11:45)
[2019-10-08] MEDS ORDERED: LOSA50TA3 PO (11:45)
[2019-10-08] MEDS ORDERED: COR6.25 PO (11:45)
[2019-10-08 13:05] VITALS: BP_SYST 80
--- NOTE | 2019-10-08 13:09 | NUR ---
alert, oriented, and appropriate, despite the fact , a very basic command of Kosovan speaking, able to make her needs known Seen by both attending,, and sugar refiner, patient is discharged to home. Author called Son, Obinna, , with 5 RX needs to get filled. Patient herself is a visitor from [facility], got stuck secondary to pandemic, she stays with the son. RX include 1/ aldactone 25mg po daily 2/ potassium 20meq po daily 3/ cozaar 50mg po daily 4/ lasix 60mg po, daily 5/ coreg 12.5mg po bid daily from 1-4, all given today by the author, EXCEPT Coreg, bid. Everything explained in details to son, for follow up with the patient's meds at home. Verbalized understanding. pepper picker time is 1500 today
[2019-10-08 13:21] VITALS: BP_SYST 112
[2019-10-09] MEDS ORDERED: FUROSEMIDE 40 MG TABLET PO SCH (09:00)
== END 2019-10-08 15:25 | disposition home or self-care (01) | DRG 871 ==
LOC: SED 00:02 → STU 02:28
PROVIDERS: ADMIT Internal Medicine Hospice and Palliative Medicine; ATTEND Internal Medicine Hospice and Palliative Medicine
DX: A41.9 Sepsis, unspecified organism (principal); J96.01 Acute respiratory failure with hypoxia; J18.9 Pneumonia, unspecified organism; I50.41 Acute combined systolic (congestive) and diastolic (congestive) heart failure; E87.1 Hypo-osmolality and hyponatremia; E87.2 Acidosis; Z20.828 Contact with and (suspected) exposure to other viral communicable diseases; E87.6 Hypokalemia; E83.51 Hypocalcemia; E87.5 Hyperkalemia; E83.41 Hypermagnesemia; I34.0 Nonrheumatic mitral (valve) insufficiency; I35.1 Nonrheumatic aortic (valve) insufficiency; I11.0 Hypertensive heart disease with heart failure; Z79.01 Long term (current) use of anticoagulants
CPT/HCPCS: 36415; 36600; 71045; 80048; 80053; 80061; 81000-TC; 82550-TC; 82728; 82803-TC; 83605; 83615-TC; 83735-TC; 83880; 84443-TC; 84484; 85025; 85379; 85384-TC; 85610-TC; 85730-TC; 86140; 86886; 86900; 86901; 87040-TC; 93005; 93306; 94640; 94760; 96361; 96365; 99285; G0378; J0456; J0696; J1650; J1940; J2060; J2270; J7050; J7612; U0003-CS

== ENCOUNTER 2019-10-10 19:27 | Inpatient (IN) | payer SELFPAY ==
[~2019-10-10] VITALS: Ht 157.5 cm; Wt 58.1 kg
[~2019-10-10 19:27] MED LIST: COR6.25 PO; FURO-149 PO; LOSA50TA3 PO; POTASSIUM CHLOR 20 mEq/Packet PO; SPIR25TA PO
[2019-10-10 19:37] VITALS: BP_SYST 140
[2019-10-10 20:42] LABS: ANION GAP 8 (5-15); CALCIUM 9.3 mg/dL (8.4-11.0); CHLORIDE 100 mmol/L (98-107); CREATININE 1.38 mg/dL (0.55-1.30); GLUCOSE 133 mg/dL (70-99); POTASSIUM 4.2 mmol/L (3.5-5.1); SODIUM SERUM 134 mmol/L (136-145); UREA NITROGEN, BLOOD 27 mg/dL (8-21)
[2019-10-10] MEDS ORDERED: NOREPINEPHRINE BITARTRATE 4 MG in NS 246 ML IV ONE (20:45)
[2019-10-10] MEDS ORDERED: NS 250 ML IV ONE ×2 (20:45→22:00)
[2019-10-10 20:47] LABS: ALANINE AMINOTRANSFERASE 60 U/L (12-78); ALBUMIN 3.3 g/dL (3.4-4.8); ASPARTATE AMINOTRANSFERASE 45 U/L (10-37); BASOPHILS # (AUTO) 0.1 K/uL (0.0-0.2); BASOPHILS % (AUTO) 0.6 % (0.0-2.0); EOSINOPHILS # (AUTO) 0.1 K/uL (0.0-0.4); EOSINOPHILS % (AUTO) 1.5 % (0.0-4.0); HEMATOCRIT 39.4 % (36-48); HEMOGLOBIN 13.1 g/dL (12.0-16.0); LYMPHOCYTES # (AUTO) 1.9 K/uL (1.0-5.5); LYMPHOCYTES % (AUTO) 20.1 % (20.5-51.5); MEAN CORPUSCULAR HEMOGLOBIN 31 pg (27-31); MEAN CORPUSCULAR HGB CONC 33 % (32-36); MEAN CORPUSCULAR VOLUME 92 fL (79.0-98.0); MONOCYTES # (AUTO) 0.7 K/uL (0.0-1.0); MONOCYTES % (AUTO) 7.5 % (1.7-9.3); NEUTROPHILS # (AUTO) 6.6 K/uL (1.8-7.7); NEUTROPHILS % (AUTO) 70.3 % (40.0-70.0); PLATELET COUNT (AUTO) 285 K/uL (130-430); RED BLOOD CELL COUNT(AUTO) 4.26 MIL/uL (4.2-6.2); RED CELL DISTRIBUTION WIDTH 13.3 % (9.0-15.0); TOTAL BILIRUBIN 0.7 mg/dL (0.0-1.0); WHITE BLOOD COUNT (AUTO) 9.4 K/uL (4.8-10.8)
[2019-10-10] MEDS ORDERED: NOREPINEPHRINE 4 MG/4 ML VIAL IV ONE (20:58)
[2019-10-10 21:17] LABS: PROTHROMBIN TIME 9.9 SECS (9.5-12.5)
[2019-10-10] MEDS ORDERED: ACETAMINOPHEN 325 MG TABLET PO PRN (22:00)
[2019-10-10 23:01] VITALS: BP_SYST 119
[2019-10-10] MEDS: NACL 0.9% 1,000 ML IV SCH (23:34)
[2019-10-11] VITALS (9 sets, daily range): BP systolic 96–120
[2019-10-11 06:51] LABS: BASOPHILS % (AUTO) 0.5 % (0.0-2.0); EOSINOPHILS # (AUTO) 0.2 K/uL (0.0-0.4); EOSINOPHILS % (AUTO) 2.7 % (0.0-4.0); HEMATOCRIT 36.4 % (36-48); HEMOGLOBIN 12.2 g/dL (12.0-16.0); LYMPHOCYTES # (AUTO) 1.7 K/uL (1.0-5.5); LYMPHOCYTES % (AUTO) 29.2 % (20.5-51.5); MEAN CORPUSCULAR HEMOGLOBIN 31 pg (27-31); MEAN CORPUSCULAR HGB CONC 34 % (32-36); MEAN CORPUSCULAR VOLUME 91 fL (79.0-98.0); MONOCYTES # (AUTO) 0.6 K/uL (0.0-1.0); NEUTROPHILS # (AUTO) 3.3 K/uL (1.8-7.7); NEUTROPHILS % (AUTO) 57.6 % (40.0-70.0); PLATELET COUNT (AUTO) 252 K/uL (130-430); RED BLOOD CELL COUNT(AUTO) 3.98 MIL/uL (4.2-6.2); RED CELL DISTRIBUTION WIDTH 13.7 % (9.0-15.0); WHITE BLOOD COUNT (AUTO) 5.7 K/uL (4.8-10.8)
[2019-10-11 07:25] LABS: ALANINE AMINOTRANSFERASE 55 U/L (12-78); ALBUMIN 2.8 g/dL (3.4-4.8); ANION GAP 7 (5-15); ASPARTATE AMINOTRANSFERASE 34 U/L (10-37); CALCIUM 8.6 mg/dL (8.4-11.0); CHLORIDE 104 mmol/L (98-107); CREATININE 1.18 mg/dL (0.55-1.30); GLUCOSE 95 mg/dL (70-99); POTASSIUM 3.9 mmol/L (3.5-5.1); SODIUM SERUM 136 mmol/L (136-145); TOTAL BILIRUBIN 0.7 mg/dL (0.0-1.0); UREA NITROGEN, BLOOD 21 mg/dL (8-21)
[2019-10-11] MEDS ORDERED: LOSARTAN POTASSIUM 25 MG TABLET PO ONE (10:30)
[2019-10-11] MEDS ORDERED: ENOXAPARIN SODIUM 30 MG/0.3 ML SYRINGE SUBCUT ONE (10:30)
[2019-10-11] MEDS ORDERED: CARVEDILOL 6.25 MG TABLET (COREG) PO ONE (10:30)
[2019-10-11] MEDS: NACL 0.9% 1,000 ML IV SCH (12:33)
[2019-10-11] MEDS: CARVEDILOL 6.25 MG TABLET (COREG) PO SCH (20:57)
[2019-10-12 00:56] VITALS: BP_SYST 97
[2019-10-12] MEDS: NACL 0.9% 1,000 ML IV SCH (03:13)
[2019-10-12 08:00] VITALS: BP_SYST 129
[2019-10-12] MEDS: FUROSEMIDE 40 MG TABLET PO SCH (09:24)
[2019-10-12] MEDS: LOSARTAN POTASSIUM 25 MG TABLET PO SCH (09:24)
[2019-10-12] MEDS: CARVEDILOL 6.25 MG TABLET (COREG) PO SCH ×2 (09:25→21:07)
[2019-10-12] MEDS: ENOXAPARIN SODIUM 30 MG/0.3 ML SYRINGE SUBCUT SCH (09:26)
[2019-10-12] MEDS ORDERED: DIPHENOXYLATE HCL/ATROP SULF 2.5 MG TAB PO PRN (09:45)
[2019-10-12 15:28] VITALS: BP_SYST 108
[2019-10-12 16:29] VITALS: BP_SYST 101
[2019-10-12 19:11] VITALS: BP_SYST 128
[2019-10-12 20:00] VITALS: BP_SYST 128
[2019-10-13] MEDS: NACL 0.9% 1,000 ML IV SCH (05:56)
[2019-10-13 06:43] LABS: BASOPHILS % (AUTO) 0.5 % (0.0-2.0); EOSINOPHILS # (AUTO) 0.3 K/uL (0.0-0.4); EOSINOPHILS % (AUTO) 5.3 % (0.0-4.0); HEMATOCRIT 37.8 % (36-48); HEMOGLOBIN 12.7 g/dL (12.0-16.0); LYMPHOCYTES # (AUTO) 1.3 K/uL (1.0-5.5); LYMPHOCYTES % (AUTO) 24.6 % (20.5-51.5); MEAN CORPUSCULAR HEMOGLOBIN 31 pg (27-31); MEAN CORPUSCULAR HGB CONC 34 % (32-36); MEAN CORPUSCULAR VOLUME 92 fL (79.0-98.0); MONOCYTES # (AUTO) 0.5 K/uL (0.0-1.0); MONOCYTES % (AUTO) 9.1 % (1.7-9.3); NEUTROPHILS # (AUTO) 3.2 K/uL (1.8-7.7); NEUTROPHILS % (AUTO) 60.5 % (40.0-70.0); PLATELET COUNT (AUTO) 224 K/uL (130-430); RED BLOOD CELL COUNT(AUTO) 4.11 MIL/uL (4.2-6.2); RED CELL DISTRIBUTION WIDTH 13.4 % (9.0-15.0); WHITE BLOOD COUNT (AUTO) 5.3 K/uL (4.8-10.8)
[2019-10-13 07:19] LABS: ANION GAP 6 (5-15); CALCIUM 8.4 mg/dL (8.4-11.0); CHLORIDE 109 mmol/L (98-107); CREATININE 0.99 mg/dL (0.55-1.30); GLUCOSE 87 mg/dL (70-99); POTASSIUM 3.6 mmol/L (3.5-5.1); SODIUM SERUM 139 mmol/L (136-145); UREA NITROGEN, BLOOD 14 mg/dL (8-21)
[2019-10-13 08:00] VITALS: BP_SYST 124
[2019-10-13] MEDS: ENOXAPARIN SODIUM 30 MG/0.3 ML SYRINGE SUBCUT SCH (08:56)
[2019-10-13] MEDS: LOSARTAN POTASSIUM 25 MG TABLET PO SCH (09:00)
[2019-10-13] MEDS: CARVEDILOL 6.25 MG TABLET (COREG) PO SCH (09:00)
[2019-10-13] MEDS: FUROSEMIDE 40 MG TABLET PO SCH (09:01)
[2019-10-13 12:06] VITALS: BP_SYST 96
[2019-10-13 16:20] VITALS: BP_SYST 103
[2019-10-13] MEDS ORDERED: LOSA50TA3 PO (16:26)
[2019-10-13] MEDS ORDERED: COR6.25 PO (16:26)
[2019-10-13 16:47] VITALS: BP_SYST 103
== END 2019-10-13 17:30 | disposition home or self-care (01) | DRG 682 ==
LOC: SED 19:27 → STU 21:13 → SMU 10-12 18:07 → STU 10-13 08:15
PROVIDERS: ADMIT Internal Medicine; ATTEND Internal Medicine
DX: N17.0 Acute kidney failure with tubular necrosis (principal); E43 Unspecified severe protein-calorie malnutrition; I42.0 Dilated cardiomyopathy; I50.9 Heart failure, unspecified; I95.89 Other hypotension; R19.7 Diarrhea, unspecified; E86.0 Dehydration; Z79.899 Other long term (current) drug therapy; Z68.23 Body mass index [BMI] 23.0-23.9, adult
CPT/HCPCS: 36415; 71045; 80048; 80053; 83735-TC; 83880; 84484; 85025; 85610-TC; 85730-TC; 87081; 87230-TC; 93005; 96360; 96361; 99285; G0378; J1650; J7030